=== PATIENT | male | born 1985 | race African-American/Black ===

== ENCOUNTER 2023-01-30 11:02 | Outpatient (CLI) | payer OTHER, SELFPAY ==
[2023-01-30 17:16] LABS: Anion Gap 3 mmol/L (8-16); Blood Urea Nitrogen 17 mg/dL (9-20); Calcium 8.9 mg/dL (8.4-10.2); Carbon Dioxide 36 mmol/L (22-30); Chloride 100 mmol/L (98-107); Cholesterol 150 mg/dL (0-200); Estimated Glomerular Filt Rate > 60; Glucose 82 mg/dL (65-110); HDL Direct 35 mg/dL; Sodium 139 mmol/L (137-145); Triglycerides 110 mg/dL (<150)
[2023-01-30 17:26] LABS: LDL Cholesterol Direct 67 mg/dL
[2023-01-30 17:33] LABS: Creatinine Urine 196.1 mg/dL
[2023-01-30 17:42] LABS: Free T4 Free Thyroxine 0.95 ng/mL (0.78-2.19); Vitamin D 25 Hydroxy 22.4 ng/mL
[2023-01-30 19:05] LABS: Microalbumin Urine Random > 1140.0 mg/L (0-16.7)
== END 2023-01-30 11:03 | disposition home or self-care (01) ==
LOC: ANHWCLAB 11:04
PROVIDERS: Visit Provider Internal Medicine Endocrinology, Diabetes & Metabolism
DX: Z71.3 Dietary counseling and surveillance (principal); Z46.81 Encounter for fitting and adjustment of insulin pump; R80.9 Proteinuria, unspecified; E55.9 Vitamin D deficiency, unspecified; E10.29 Type 1 diabetes mellitus with other diabetic kidney complication; E10.65 Type 1 diabetes mellitus with hyperglycemia
CPT/HCPCS: 36415; 80048; 80061; 82043; 82306; 82607; 84439; 84443